=== PATIENT | female | born 1985 | race African-American/Black ===

== ENCOUNTER 2018-05-13 21:33 | Emergency (ER) | payer MEDICAID ==
[~2018-05-13] VITALS: Ht 170.2 cm; Wt 77.0 kg
[~2018-05-13 21:33] MED LIST: CALC1TAB17 PO; EMTR1TAB8 PO; FERR-43 PO; PREN-88; PREN-88 PO
[2018-05-14] MEDS ORDERED: DIAZEPAM 5 MG TABLET PO ONE
[2018-05-14 04:30] VITALS: BP 134/79
== END 2018-05-14 04:45 | disposition home or self-care (01) ==
LOC: ER 21:33
DX: M62.830 Muscle spasm of back (principal); Z88.8 Allergy status to other drugs, medicaments and biological substances; Z79.899 Other long term (current) drug therapy
CPT/HCPCS: 71045; 93005; 99283

== ENCOUNTER 2019-03-28 11:11 | Inpatient (IN) | payer MEDICAID, OTHER ==
[~2019-03-28] VITALS: Ht 170.2 cm; Wt 83.9 kg
[2019-03-28] MEDS ORDERED: ONDANSETRON HCL 4MG/2ML INJ IV STA (12:20)
[2019-03-28] MEDS ORDERED: MORPHINE SULFATE 4 MG/ML CPJ (NOT FOR IM USE) IV STA (12:20)
[2019-03-28] MEDS ORDERED: SODIUM CHLORIDE 0.9% 1,000 ML IV ONE (12:20)
[2019-03-28 12:34] LABS: BASOPHILS % 0.5 % (0.0-2.0); EOSINOPHILS % 1.5 % (0.0-5.0); HEMATOCRIT. 39.2 % (36.0-48.0); HEMOGLOBIN. 13.1 g/dL (12.0-16.0); LYMPHOCYTES % 25.3 % (20.0-50.0); MEAN CORPUSCULAR HEMOGLOBIN 31.3 pg (28.0-32.0); MEAN CORPUSCULAR VOLUME 93.4 fL (81.0-99.0); MEAN PLATELET VOLUME 7.9 fl (7.4-10.4); MONOCYTES % 6.5 % (2.0-8.0); NEUTROPHILS % 66.2 % (40.0-76.0); PLATELET 272 x1000/uL (130-400); RED BLOOD CELL COUNT 4.19 mill/uL (4.2-5.4); RED CELL DISTRIBUTION WIDTH 13.1 % (11.6-14.6)
[2019-03-28 12:37] LABS: CHLORIDE 106 mEq/L (98-107)
[2019-03-28 12:54] LABS: HCG SCREEN NEGATIVE
[2019-03-28 12:57] LABS: PROTHROMBIN TIME 10.5 sec (9.6-11.0)
[2019-03-28] MEDS ORDERED: KETOROLAC 30MG/ML VIAL IV ONE (16:15)
[2019-03-28 18:04] VITALS: BP 125/74
[2019-03-28] MEDS ORDERED: MAGNESIUM/ALUMINUM HYDROXIDE/SIMETHICONE 30ML UDC PO PRN (18:15)
[2019-03-28] MEDS ORDERED: ACETAMINOPHEN 325MG TABLET PO PRN (18:15)
[2019-03-28] MEDS ORDERED: GUAIFENESIN 200MG/10ML SUGAR FREE UDC PO PRN (18:15)
[2019-03-28] MEDS ORDERED: DOCUSATE SODIUM 100MG CAPSULE PO PRN (18:15)
[2019-03-28] MEDS ORDERED: CLONIDINE 0.1MG TABLET PO PRN (18:15)
[2019-03-28] MEDS: MORPHINE SULFATE 2 MG/ML CPJ (NOT FOR IM USE) IV PRN (19:40)
[2019-03-28] MEDS: ONDANSETRON HCL 4MG/2ML INJ IV PRN (19:46)
[2019-03-29] VITALS: BP 105/67
[2019-03-29] MEDS: MORPHINE SULFATE 2 MG/ML CPJ (NOT FOR IM USE) IV PRN ×5 (00:34→21:56)
[2019-03-29 04:00] VITALS: BP 113/66
[2019-03-29 07:15] LABS: BASOPHILS % 0.6 % (0.0-2.0); EOSINOPHILS % 2.6 % (0.0-5.0); HEMATOCRIT. 36.3 % (36.0-48.0); HEMOGLOBIN. 12.1 g/dL (12.0-16.0); LYMPHOCYTES % 42.8 % (20.0-50.0); MEAN CORPUSCULAR HEMOGLOBIN 31.3 pg (28.0-32.0); MEAN CORPUSCULAR VOLUME 93.8 fL (81.0-99.0); MEAN PLATELET VOLUME 8.3 fl (7.4-10.4); MONOCYTES % 7.8 % (2.0-8.0); NEUTROPHILS % 46.2 % (40.0-76.0); PLATELET 249 x1000/uL (130-400); RED BLOOD CELL COUNT 3.87 mill/uL (4.2-5.4); RED CELL DISTRIBUTION WIDTH 12.9 % (11.6-14.6)
[2019-03-29 07:39] LABS: CHLORIDE 107 mEq/L (98-107)
[2019-03-29 08:00] VITALS: BP 110/64
[2019-03-29] MEDS: HYDROCODONE/ACETAMINOPHEN 5/325MG TABLET PO PRN (08:32)
[2019-03-29 12:00] VITALS: BP 121/60
[2019-03-29] MEDS ORDERED: IBUPROFEN 800MG TABLET PO PRN (13:00)
[2019-03-29] MEDS: CYCLOBENZAPRINE 10MG TABLET PO SCH ×2 (14:15→21:55)
[2019-03-29 16:00] VITALS: BP 122/66
[2019-03-29] MEDS: ONDANSETRON HCL 4MG/2ML INJ IV PRN (16:25)
[2019-03-29 20:00] VITALS: BP 92/51
[2019-03-30] VITALS: BP 106/61
[2019-03-30 04:00] VITALS: BP 107/65
[2019-03-30] MEDS: CYCLOBENZAPRINE 10MG TABLET PO SCH ×2 (05:38→10:12)
[2019-03-30] MEDS: MORPHINE SULFATE 2 MG/ML CPJ (NOT FOR IM USE) IV PRN ×2 (05:38→12:18)
[2019-03-30] MEDS: HYDROCODONE/ACETAMINOPHEN 5/325MG TABLET PO PRN (10:12)
[2019-03-30 12:00] VITALS: BP 109/60
[2019-03-30] MEDS ORDERED: DIPHENHYDRAMINE 50MG/ML VIAL IV NR (13:15)
[2019-03-30 15:36] VITALS: BP 110/73
[2019-03-30 15:54] VITALS: BP 110/73
[2019-03-30 16:11] VITALS: BP 110/73
== END 2019-03-30 16:49 | disposition home or self-care (01) | DRG 48 ==
LOC: ER 11:11 → ENRESERV 16:52 → 6EST 17:47
PROVIDERS: ADMIT Hospitalist; ATTEND Hospitalist
DX: M54.12 Radiculopathy, cervical region (principal); G43.909 Migraine, unspecified, not intractable, without status migrainosus; M54.30 Sciatica, unspecified side; Z88.8 Allergy status to other drugs, medicaments and biological substances; Z79.899 Other long term (current) drug therapy; Z98.891 History of uterine scar from previous surgery; Z82.49 Family history of ischemic heart disease and other diseases of the circulatory system
CPT/HCPCS: 36415; 71045; 72141; 72146; 72148; 83605; 84484; 84703; 93970; 97162; 97165; 99285; J1200; J1885; J2270; J2405; J7030